=== PATIENT | female | born 1955 | race Asian ===

== ENCOUNTER 2016-09-03 06:04 | Day surgery (SDC) | payer OTHER ==
[~2016-09-03] VITALS: Ht 157.5 cm; Wt 50.5 kg
[~2016-09-03 06:04] MED LIST: ALBU8.5H IH; METO50 PO; MULT-71 PO; QUET25TA PO; SIMV-260 PO; SODIUM CHLORIDE 0.9% 1,000 ML IV ONE; TAMO10 PO; TERA1 PO; VALP5L PO
[2016-09-03] MEDS ORDERED: SODIUM CHLORIDE 0.9% 1,000 ML IV ONE (06:13)
[2016-09-03 06:52] LABS: GLUCOSE,POINT OF CARE 74 MG/DL (70-110)
[2016-09-03] MEDS ORDERED: MIDAZOLAM HCL 5 MG/ML VIAL ONE (07:23)
[2016-09-03] MEDS ORDERED: FentaNYL CITRATE-PF 100 MCG/2 ML VIAL ONE (07:23)
== END 2016-09-03 09:40 | disposition home or self-care (01) ==
LOC: SURGERY 06:04
PROVIDERS: ATTEND Specialist
DX: Z46.59 Encounter for fitting and adjustment of other gastrointestinal appliance and device (principal); Z86.79 Personal history of other diseases of the circulatory system; Z98.2 Presence of cerebrospinal fluid drainage device; Z79.899 Other long term (current) drug therapy
CPT/HCPCS: 43247; 82962; J2250; J3010; J7030